=== PATIENT | female | born 1960 | race Caucasian/White ===

== ENCOUNTER 2017-08-19 08:33 | Emergency (ER) | payer OTHER ==
[2017-08-19 08:33] VITALS: BMI 29.1
[2017-08-19 08:54] VITALS: TEMP 98.6
--- NOTE | 2017-08-19 09:11 | ED PDOC ---
Arrival/HPI - General Chief Complaint: Abdominal Pain Time Seen by Provider: 08/19/17 08:47 Historian: Patient - History of Present Illness Narrative History of Present Illness (Text): 08/19/17 08:57 A 56 year old female pmh enteritis, diabetes mellitus, hypertension, and depression, surgical history includes bladder sling, spinal disc repair, hernia dorsal spine repair, carpal tunnel repair, presents to the emergency department for constant lower abdominal "burning" discomfort, which began 3 days ago. She notes she has associated mild nausea. The patient reports she has not taken anything for the pain at home. She denies any fever, chest pain, vomiting, diarrhea, dysuria, vaginal discharge, vaginal bleeding, or any other complaints at this time. Time/Duration: < week (x 3 days) Symptom Onset: Gradual Symptom Course: Unchanged Quality: Burning (lower abdominal ) Activities at Onset: Light Context: Home Past Medical History - Provider Review Nursing Documentation Reviewed: Yes - Past History Past History: Non-Contributing - Infectious Disease Hx of Infectious Diseases: None - Tetanus Immunization Tetanus Immunization: Unknown - Reproductive Menopause: Yes - Cardiac Hx Cardiac Disorders: Yes Hx Hypertension: Yes - Pulmonary Hx Respiratory Disorders: No - Neurological Hx Neurological Disorder: No - HEENT Hx HEENT Disorder: No - Renal Hx Renal Disorder: No - Endocrine/Metabolic Hx Endocrine Disorders: Yes Hx Diabetes Mellitus Type 2: Yes Hx Hyperthyroidism: Yes - Hematological/Oncological Hx Blood Disorders: No - Integumentary Hx Dermatological Disorder: No - Musculoskeletal/Rheumatological Hx Musculoskeletal Disorders: No - Gastrointestinal Hx Gastrointestinal Disorders: No - Genitourinary/Gynecological Hx Genitourinary Disorders: No - Psychiatric Hx Psychophysiologic Disorder: Yes Hx Depression: Yes Hx Substance Use: No - Past Surgical History Past Surgical History: No Previous - Surgical History Hx Orthopedic Surgery: Yes (carpal tunnel, herniated disc) - Anesthesia Hx Anesthesia: Yes Hx Anesthesia Reactions: No Hx Malignant Hyperthermia: No - Suicidal Assessment Feels Threatened In Home Enviroment: No Family/Social History - Physician Review Nursing Documentation Reviewed: Yes Family/Social History: Unknown Family HX Smoking Status: Never Smoked Hx Alcohol Use: No Hx Substance Use: No Hx Substance Use Treatment: No Allergies/Home Meds Allergies/Adverse Reactions: Allergies No Known Allergies Allergy (Verified 08/19/17 08:54) Home Medications: Home Meds Medication Instructions Recorded Confirmed ARIPiprazole [Abilify] 2 mg PO DAILY 08/19/17 08/19/17 Escitalopram [Lexapro] 10 mg PO DAILY 08/19/17 08/19/17 GlipiZIDE [Glipizide] 10 mg PO BID 08/19/17 08/19/17 Lisinopril [Zestril] 40 mg PO DAILY 08/19/17 08/19/17 MetFORMIN [glucOPHAGE] 1,000 mg PO BID 08/19/17 08/19/17 amLODIPine [Norvasc] 5 mg PO DAILY 08/19/17 08/19/17 Review of Systems - Physician Review All systems were reviewed & negative as marked: Yes - Review of Systems Constitutional: absent: Fevers Respiratory: absent: SOB, Cough Cardiovascular: absent: Chest Pain Gastrointestinal: Nausea (mild), Other (lower abdominal burning ). absent: Abdominal Pain, Diarrhea, Vomiting Genitourinary Female: absent: Dysuria, Frequency, Hematuria, Vaginal Bleeding, Vaginal Discharge Physical Exam Vital Signs Reviewed: Yes Vital Signs Temp Pulse Resp BP Pulse Ox 08/19/17 12:00 87 18 159/71 H 99 08/19/17 10:33 89 18 157/79 H 98 08/19/17 08:51 98.6 F 70 16 164/90 H 99 Temperature: Afebrile Blood Pressure: Hypertensive Pulse: Regular Respiratory Rate: Normal Appearance: Positive for: Well-Appearing, Non-Toxic, Comfortable Pain Distress: None Mental Status: Positive for: Alert and Oriented X 3 Finger Stick Blood Glucose: 147 - Systems Exam Head: Present: Atraumatic, Normocephalic Pupils: Present: PERRL Mouth: Present: Moist Mucous Membranes Neck: Present: Normal Range of Motion Respiratory/Chest: Present: Clear to Auscultation, Good Air Exchange. No: Respiratory Distress, Accessory Muscle Use Cardiovascular: Present: Regular Rate and Rhythm, Normal S1, S2. No: Murmurs Abdomen: Present: Tenderness (non-focal lower abdominal tenderness), Normal Bowel Sounds. No: Distention, Peritoneal Signs, McBurney's Point Tender Neurological: Present: GCS=15, Speech Normal Skin: Present: Warm, Dry, Normal Color. No: Rashes Psychiatric: Present: Alert, Oriented x 3, Normal Insight, Normal Concentration Medical Decision Making ED Course and Treatment: The pt appears well, in no distress, benign abdominal exam. I disc w both pt and her results and plan for f/u for pain and also for incidental CT findings. Pt v/u and agrees w plan. Will f/u w pcp and regional education coordinator this week. Progress Notes: EKG: Ordered, reviewed, and independently interpreted the EKG. Rate : 73 BPM Rhythm : NSR Interpretation : No axis, normal intervals. No acute ischemia. PROCEDURE: CT Abdomen and Pelvis with contrast HISTORY: abdominal pain COMPARISON: None. TECHNIQUE: Contrast dose: 100 mL Omnipaque 350 Radiation dose: Total exam DLP = 511.44 mGy-cm. This CT exam was performed using one or more of the following dose reduction techniques: Automated exposure control, adjustment of the mA and/or kV according to patient size, and/or use of iterative reconstruction technique. FINDINGS: LOWER THORAX: Unremarkable. LIVER: Unremarkable. No gross lesion or ductal dilatation. GALLBLADDER AND BILE DUCTS: Unremarkable. PANCREAS: The pancreas is normal in size. There is a fluid density mass with direct communication demonstrated with the pancreatic duct. This mass measures approximately 1.2 x 0.6 cm. This most likely represents an IPMN. Followup with contrast-enhanced CT is advised. There is no other pancreatic mass identified. There is no pancreatic ductal dilatation. SPLEEN: Unremarkable. ADRENALS: Unremarkable. No mass. KIDNEYS AND URETERS: Unremarkable. No hydronephrosis. No solid mass. VASCULATURE: Unremarkable. No aortic aneurysm. BOWEL: Unremarkable. No obstruction. No gross mural thickening. APPENDIX: Normal appendix. PERITONEUM: Unremarkable. No free fluid. No free air. LYMPH NODES: Unremarkable. No enlarged lymph nodes. BLADDER: Unremarkable. REPRODUCTIVE: Postmenopausal uterus. Several coarse calcifications likely reflecting degenerating calcified fibroids. BONES: No acute fracture. OTHER FINDINGS: None. IMPRESSION: No acute abnormality. Fluid density 12 mm pancreatic mass with direct communication with the pancreatic duct most likely represents an IPMN. Followup with contrast-enhanced CT is advised. - Lab Interpretations Microbiology Results: Microbiology Results 08/19/17 09:30 Urine Urine Culture - Final No Growth (<1,000 CFU/ML) Lab Results: 08/19/17 08:55 08/19/17 08:55 Lab Results 08/19/17 09:30: Urine Color Yellow, Urine Appearance Clear, Urine pH 7.0, Ur Specific [place] 1.015, Urine Protein Trace H, Urine Glucose (UA) Negative, Urine Ketones Negative, Urine Blood Trace-intact H, Urine Nitrate Negative, Urine Bilirubin Negative, Urine Urobilinogen 0.2, Ur Leukocyte Esterase Negative , Urine RBC 0 - 2, Urine WBC 0 - 2, Ur Epithelial Cells 3 - 4, Urine Bacteria Few 08/19/17 08:55: Sodium 142, Potassium 4.2, Chloride 103, Carbon Dioxide 27, Anion Gap 16, BUN 12, Creatinine 0.6, Est GFR ( Amer) > 60, Est GFR (Non- Af Amer) > 60, Random Glucose 130 H, Calcium 9.9, Total Bilirubin 1.1, AST 26, ALT 39, Alkaline Phosphatase 133 H, Total Protein 8.0, Albumin 4.7, Globulin 3.3 , Albumin/Globulin Ratio 1.4, Lipase 81 08/19/17 08:55: WBC 7.3, RBC 4.53, Hgb 13.4, Hct 39.9, MCV 88.1, MCH 29.6, MCHC 33.6, RDW 13.1, Plt Count 222, MPV 9.0, Gran % 49.0 L, Lymph % (Auto) 43.4 H, [place] % (Auto) 5.7, Eos % (Auto) 1.8, Baso % (Auto) 0.1, Gran # 3.59, Lymph # 3.2 , [place] # 0.4, Eos # 0.1, Baso # 0.01 - RAD Interpretation Radiology Orders: 08/19/17 10:00 ABD & PELVIS IV CONTRAST ONLY [CT] Stat - Medication Orders Current Medication Orders: Discontinued Medications Ketorolac Tromethamine (Toradol) 10 mg IVP STAT STA Stop: 08/19/17 12:12 Last Admin: 08/19/17 12:25 Dose: 10 mg MAR Pain Assessment Document 08/19/17 12:25 [facility] (Rec: 08/19/17 12:26 [id number] Pain Reassessment Is this a pain reassessment? No Sleep Is patient sleeping during reassessment? No Presence of Pain Presence of Pain Yes Pain Scale Used Pain Scale Used Numeric IVP Administration Document 08/19/17 12:25 [facility] (Rec: 08/19/17 12:26 [id number]) Charges for Administration # of IVP Administrations 1 - Scribe Statement The provider has reviewed the documentation as recorded by the Scribe Kelly Tolentino Provider Scribe Attestation: All medical record entries made by the Scribe were at my direction and personally dictated by me. I have reviewed the chart and agree that the record accurately reflects my personal performance of the history, physical exam, medical decision making, and the department course for this patient. I have also personally directed, reviewed, and agree with the discharge instructions and disposition. Disposition/Present on Arrival - Present on Arrival Any Indicators Present on Arrival: No History of DVT/PE: No History of Uncontrolled Diabetes: No Urinary Catheter: No History of Decub. Ulcer: No History Surgical Site Infection Following: None - Disposition Have Diagnosis and Disposition been Completed?: Yes Diagnosis: Lower abdominal pain Disposition: HOME/ ROUTINE Disposition Time: 13:08 Condition: STABLE Discharge Instructions (ExitCare): Acute Abdominal Pain (ED) Print Language: SYRIAN Additional Instructions: Please follow up with your primary doctor and also with your juvenile court judge this week. Please take the naproxen for pain first and only take the tylenol with codeine if this is not helping. Return to the ER for any worsening symptoms or for any other concerns. Prescriptions: Acetaminophen with Codeine [Tylenol with Codeine #3 Tablet] 1 each PO Q4H PRN # 6 tablet PRN Reason: Pain, Moderate (4-7) Naproxen [Naprosyn] 500 mg PO Q12H PRN #10 tablet PRN Reason: Pain, Moderate (4-7) Ondansetron ODT [Zofran ODT] 4 mg PO Q4H PRN #10 odt PRN Reason: Nausea/Vomiting Referrals: Sher Boogie MD [Primary Care Provider] - Follow up with primary Forms: [facility] [facility] (I[place]ic)
[2017-08-19 09:22] LABS: BASO # 0.01 K/mm3 (0.0-2.0); BASO % 0.1 % (0.0-3.0); EOS # 0.1 (0.0-0.7); EOS % 1.8 % (1.5-5.0); GRAN # 3.59 (1.4-6.5); HEMATOCRIT 39.9 % (36.0-48.0); LYMPH # 3.2 (1.2-3.4); LYMPH % 43.4 % (22.0-35.0); MEAN CELL VOLUME 88.1 fl (80.0-105.0); MEAN CORPUSCULAR HEMOGLOBIN 29.6 pg (25.0-35.0); MEAN CORPUSCULAR HGB CONC 33.6 g/dl (31.0-37.0); MONO # 0.4 (0.1-0.6); MONO % 5.7 % (1.0-6.0); RED CELL DISTRIBUTION WIDTH 13.1 % (11.5-14.5); WHITE BLOOD COUNT 7.3 10^3/ul (4.5-11.0)
[2017-08-19 09:35] LABS: ALB/GLOB RATIO 1.4 (1.1-1.8); ALKALINE PHOSPHATASE 133 U/L (38-126); ALT/SGPT 39 U/L (7-56); AST/SGOT 26 U/L (14-36); BILIRUBIN,TOTAL 1.1 mg/dL (0.2-1.3); BLOOD UREA NITROGEN 12 mg/dL (7-21); CALCIUM 9.9 mg/dL (8.4-10.5); CARBON DIOXIDE 27 mmol/L (21-33); CHLORIDE 103 mmol/L (98-107); GFR AFRICAN-AMERICAN > 60; GLUCOSE,RANDOM 130 mg/dL (70-110); LIPASE 81 U/L (23-300); POTASSIUM 4.2 mmol/L (3.6-5.0); SODIUM 142 mmol/L (132-148)
[2017-08-19 09:54] LABS: URINE BILIRUBIN NEGATIVE (NEGATIVE); URINE BLOOD TRACE-INTACT (NEGATIVE); URINE GLUCOSE (UA) NEGATIVE (NEGATIVE); URINE KETONE NEGATIVE (NEGATIVE); URINE LEUKOCYTE ESTERASE NEGATIVE Leu/uL (NEGATIVE); URINE PROTEIN TRACE mg/dL (<30 mg/dL); URINE UROBILINOGEN 0.2 E.U./dL (<1 E.U./dL)
[2017-08-19 09:55] LABS: URINE APPEARANCE CLEAR (CLEAR); URINE COLOR YELLOW (YELLOW)
[2017-08-19 10:10] LABS: URINE BACTERIA FEW (NEG); URINE RBC 0 - 2 /hpf (0-2); URINE WBC 0 - 2 /hpf (0-6)
[2017-08-19] MEDS ORDERED: Iohexol 350 MG/100 ML VIAL ONE (10:16)
--- NOTE | 2017-08-19 11:58 | CT ---
PROCEDURE: CT Abdomen and Pelvis with contrast HISTORY: abdominal pain COMPARISON: None. TECHNIQUE: Contrast dose: 100 mL Omnipaque 350 Radiation dose: Total exam DLP = 511.44 mGy-cm. This CT exam was performed using one or more of the following dose reduction techniques: Automated exposure control, adjustment of the mA and/or kV according to patient size, and/or use of iterative reconstruction technique. FINDINGS: LOWER THORAX: Unremarkable. LIVER: Unremarkable. No gross lesion or ductal dilatation. GALLBLADDER AND BILE DUCTS: Unremarkable. PANCREAS: The pancreas is normal in size. There is a fluid density mass with direct communication demonstrated with the pancreatic duct. This mass measures approximately 1.2 x 0.6 cm. This most likely represents an IPMN. Followup with contrast-enhanced CT is advised. There is no other pancreatic mass identified. There is no pancreatic ductal dilatation. SPLEEN: Unremarkable. ADRENALS: Unremarkable. No mass. KIDNEYS AND URETERS: Unremarkable. No hydronephrosis. No solid mass. VASCULATURE: Unremarkable. No aortic aneurysm. BOWEL: Unremarkable. No obstruction. No gross mural thickening. APPENDIX: Normal appendix. PERITONEUM: Unremarkable. No free fluid. No free air. LYMPH NODES: Unremarkable. No enlarged lymph nodes. BLADDER: Unremarkable. REPRODUCTIVE: Postmenopausal uterus. Several coarse calcifications likely reflecting degenerating calcified fibroids. BONES: No acute fracture. OTHER FINDINGS: None. IMPRESSION: No acute abnormality. Fluid density 12 mm pancreatic mass with direct communication with the pancreatic duct most likely represents an IPMN. Followup with contrast-enhanced CT is advised.
[2017-08-19 13:07] VITALS: RESP 18
[2017-08-19 13:08] VITALS: BP 159/71; PULSE 87; O2SAT 99
--- NOTE | 2017-08-20 07:41 | CARD ---
APPROVED REPORT EKG Measurement Heart [id number] <Conclusion> Normal sinus rhythm Normal ECG No change
== END 2017-08-19 13:08 | disposition home or self-care (01) ==
LOC: ED 08:33
DX: R10.30 Lower abdominal pain, unspecified (principal); I10 Essential (primary) hypertension; E11.9 Type 2 diabetes mellitus without complications
CPT/HCPCS: 74177; 80053; 81001; 83690; 85025; 87086; 93005; 96374; 99284; J1885; Q9967

== ENCOUNTER 2017-09-06 13:27 | Inpatient (IN) | payer MEDICARE, OTHER ==
[2017-09-06 13:28] VITALS: BMI 29.1
[2017-09-06] MEDS ORDERED: Sodium Chloride 0.9% 1,000 ML IV STA (14:47)
[2017-09-06] MEDS ORDERED: Morphine 4 mg/ml ISec IVP STA (14:47)
[2017-09-06] MEDS ORDERED: Iohexol 240 (50 ml) ONE (15:17)
--- NOTE | 2017-09-06 15:17 | ED PDOC ---
Arrival/HPI <Basia Alcantara - Last Filed: 09/06/17 22:33> - General Historian: Patient - History of Present Illness Time/Duration: Other (approx 20 days) <Radha Moon - Last Filed: 09/07/17 00:34> - General Chief Complaint: Abdominal Pain Time Seen by Provider: 09/06/17 14:37 - History of Present Illness Narrative History of Present Illness (Text): 09/06/17 15:13 57yr old female presents today with continued worsening diffuse abdominal pain, greatest in the RLQ. c/o subjective fevers and chills. no n/v/d/c. no cp or sob. c/o diffuse bodyaches. pt states she has been taking tylenol for pain without improvement. denies urinary symptoms. no dizziness or weakness. no other complaints. (Radha Moon) Past Medical History - Provider Review Nursing Documentation Reviewed: Yes - Travel History Have you recently traveled outside [place] w/in the past 3 mons?: No - Past History Past History: Non-Contributing - Infectious Disease Hx of Infectious Diseases: None - Tetanus Immunization Tetanus Immunization: Unknown - Cardiac Hx Cardiac Disorders: Yes Hx Hypertension: Yes - Pulmonary Hx Respiratory Disorders: No - Neurological Hx Neurological Disorder: No - HEENT Hx HEENT Disorder: No - Renal Hx Renal Disorder: No - Endocrine/Metabolic Hx Endocrine Disorders: Yes Hx Diabetes Mellitus Type 2: Yes Hx Hyperthyroidism: Yes - Hematological/Oncological Hx Blood Disorders: No - Integumentary Hx Dermatological Disorder: No - Musculoskeletal/Rheumatological Hx Musculoskeletal Disorders: No - Gastrointestinal Hx Gastrointestinal Disorders: No - Genitourinary/Gynecological Hx Genitourinary Disorders: No - Psychiatric Hx Psychophysiologic Disorder: Yes Hx Depression: Yes Hx Substance Use: No - Past Surgical History Past Surgical History: No Previous - Surgical History Hx Orthopedic Surgery: Yes (carpal tunnel, herniated disc) - Anesthesia Hx Anesthesia: Yes Hx Anesthesia Reactions: No Hx Malignant Hyperthermia: No - Suicidal Assessment Feels Threatened In Home Enviroment: No <Radha Moon - Last Filed: 09/07/17 00:34> Family/Social History - Physician Review Nursing Documentation Reviewed: Yes Family/Social History: Unknown Family HX Smoking Status: Never Smoked Hx Alcohol Use: No Hx Substance Use: No Hx Substance Use Treatment: No <Radha Moon - Last Filed: 09/07/17 00:34> Allergies/Home Meds <Basia Alcantara - Last Filed: 09/06/17 22:33> <Radha Moon - Last Filed: 09/07/17 00:34> Allergies/Adverse Reactions: Allergies No Known Allergies Allergy (Verified 09/06/17 14:47) Home Medications: Home Meds Medication Instructions Recorded Confirmed ARIPiprazole [Abilify] 2 mg PO DAILY 08/19/17 08/19/17 Escitalopram [Lexapro] 10 mg PO DAILY 08/19/17 08/19/17 GlipiZIDE [Glipizide] 10 mg PO BID 08/19/17 08/19/17 Lisinopril [Zestril] 40 mg PO DAILY 08/19/17 08/19/17 MetFORMIN [glucOPHAGE] 1,000 mg PO BID 08/19/17 08/19/17 amLODIPine [Norvasc] 5 mg PO DAILY 08/19/17 08/19/17 Review of Systems - Review of Systems Constitutional: Fevers. absent: Fatigue Respiratory: absent: SOB, Cough Cardiovascular: absent: Chest Pain, Palpitations Gastrointestinal: Abdominal Pain. absent: Constipation, Diarrhea, Nausea, Vomiting Genitourinary Female: absent: Dysuria, Frequency, Hematuria Musculoskeletal: Other (bodyaches). absent: Arthralgias, Back Pain, Neck Pain Skin: absent: Rash, Pruritis Neurological: absent: Headache, Dizziness Psychiatric: absent: Anxiety, Depression <Radha Moon - Last Filed: 09/07/17 00:34> Physical Exam Vital Signs Reviewed: Yes Temperature: Afebrile Blood Pressure: Hypertensive Pulse: Regular Respiratory Rate: Normal Appearance: Positive for: Well-Appearing, Non-Toxic, Uncomfortable Pain Distress: None Mental Status: Positive for: Alert and Oriented X 3 - Systems Exam Head: Present: Atraumatic Mouth: Present: Moist Mucous Membranes Neck: Present: Normal Range of Motion Respiratory/Chest: Present: Clear to Auscultation, Good Air Exchange. No: Respiratory Distress, Accessory Muscle Use Cardiovascular: Present: Regular Rate and Rhythm Abdomen: Present: Normal Bowel Sounds, Guarding (voluntary). No: Tenderness ( diffuse abdominal tenderness), Distention, Peritoneal Signs, Rebound Genitourinary/Pelvic Exam: Present: Normal External Genitalia Back: Present: Normal Inspection. No: CVA Tenderness, Midline Tenderness, Paraspinal Tenderness Upper Extremity: Present: Normal ROM Lower Extremity: Present: Normal ROM Neurological: Present: GCS=15, Speech Normal Skin: Present: Warm, Dry, Normal Color. No: Rashes Psychiatric: Present: Alert, Oriented x 3 <Radha Moon - Last Filed: 09/07/17 00:34> Vital Signs Temp Pulse Resp BP Pulse Ox 09/06/17 16:32 72 18 152/90 H 100 09/06/17 14:43 98.8 F 72 17 164/88 H 100 Medical Decision Making <Basia Alcantara - Last Filed: 09/06/17 22:33> <Radha Moon - Last Filed: 09/07/17 00:34> ED Course and Treatment: 09/06/17 15:16 57yr old female presents today with diffuse abdominal pain. had ct of pancreatic mass on 08/19. now with continued pain. has outpatient ct scheduled for next week. morphine given for pain NS iv bolus given cbc wnl cmp wnl lipase wnl UA;trace blood 09/06/17 16:23 pt reassessment; pt feeling better after medications; vitals stable. pt reassessment; pain is returning. pt with luq, rlq tenderness. CT abd/pelvis with PO and IV contrast:FINDINGS: Lower thorax: Heart size is normal. There is a small hiatal hernia. There is minimal atelectasis and scarring at the lung bases. ABDOMEN: Liver: There is fatty infiltration of the liver. Gallbladder and bile ducts: unremarkable Pancreas: Pancreas is mildly atrophic. There is a 7 x 6 millimeter low attenuation lesion at the junction of the pancreatic body and tail, unchanged compared to the prior study. Pancreas is otherwise unremarkable. Spleen: unremarkable Adrenals: unremarkable Kidneys and ureters: unremarkable Stomach and bowel: Stomach is empty. Rotation is normal. The proximal jejunal loops are mildly distended with air-fluid levels. There is no small bowel obstruction. There is oral contrast in the distal small bowel. Terminal ileum is unremarkable. Appendix is unremarkable. There is moderate stool in the colon. Appendix: See stomach and bowel PELVIS: Bladder: unremarkable Reproductive: Uterine contours are lobular. There are small calcified masses/ fibroids. Adnexa are unremarkable. ABDOMEN and PELVIS: Intraperitoneal space: There is no free air or free fluid. Bones/joints: There are degenerative changes in the osseus structures. Soft tissues: is a fat-containing umbilical hernia. Vasculature: There are atherosclerotic calcifications in the aorta. Lymph nodes: There is no pathologic adenopathy. IMPRESSION: Fatty liver, no acute solid visceral abnormality; low attenuation/ cystic pancreatic body lesion unchanged since the prior study; no bowel obstruction; no CT findings of appendicitis; fibroid uterus Additional findings as described above. case discussed with dr. schroeder accepts admission to med/surg all aspects of this case were discussed the attending of record. impression; intractable abdominal pain, pancreatic mass admit to med/surg (Radha Moon) - Lab Interpretations Lab Results: 09/06/17 14:40 09/06/17 14:40 Lab Results 09/06/17 18:45: Urine Color Yellow, Urine Appearance Clear, Urine pH 7.0, Ur Specific [place] 1.010, Urine Protein Negative, Urine Glucose (UA) Negative, Urine Ketones Negative, Urine Blood Trace-intact H, Urine Nitrate Negative, Urine Bilirubin Negative, Urine Urobilinogen 0.2, Ur Leukocyte Esterase Negative , Urine RBC 0 - 2, Urine WBC 0 - 2, Ur Epithelial Cells 0 - 2, Urine Bacteria Rare 09/06/17 14:40: WBC 7.4, RBC 4.41, Hgb 13.2, Hct 39.0, MCV 88.4, MCH 29.9, MCHC 33.8, RDW 12.9, Plt Count 224, MPV 9.0, Gran % 45.8 L, Lymph % (Auto) 46.2 H, [place] % (Auto) 6.1 H, Eos % (Auto) 1.8, Baso % (Auto) 0.1, Gran # 3.40, Lymph # 3.4, [place] # 0.5, Eos # 0.1, Baso # 0.01 09/06/17 14:40: Sodium 144, Potassium 4.3, Chloride 104, Carbon Dioxide 30, Anion Gap 14, BUN 14, Creatinine 0.6 L, Est GFR ( Amer) > 60, Est GFR ( Non-Af Amer) > 60, Random Glucose 106, Calcium 9.9, Total Bilirubin 0.9, AST 24 , ALT 38, Alkaline Phosphatase 125, Total Protein 7.9, Albumin 4.7, Globulin 3.2 , Albumin/Globulin Ratio 1.5, Lipase 34 - RAD Interpretation Radiology Orders: 09/06/17 14:47 CHEST PORTABLE [RAD] Stat 09/06/17 15:09 ABD PELVIS PO & IV CONTRAST [CT] Stat - Medication Orders Current Medication Orders: Discontinued Medications Sodium Chloride (Sodium Chloride 0.9%) 1,000 mls @ 999 mls/hr IV .Q1H1M STA Stop: 09/06/17 15:47 Last Admin: 09/06/17 15:52 Dose: 999 mls/hr eMAR Start Stop Document 09/06/17 15:52 MB (Rec: 09/06/17 15:53 [id number] Intravenous Solution Start Date 09/06/17 Start Time 15:53 Morphine Sulfate (Morphine) 4 mg IVP STAT STA Stop: 09/06/17 14:48 Last Admin: 09/06/17 15:53 Dose: 4 mg MAR Pain Assessment Document 09/06/17 15:53 MB (Rec: 09/06/17 15:54 [id number]) Pain Reassessment Is this a pain reassessment? No Sleep Is patient sleeping during reassessment? No Presence of Pain Presence of Pain Yes Pain Scale Used Pain Scale Used Numeric Location Left, Right or Bilateral Bilateral Upper or Lower Lower Pain Location Body Site Abdomen Description Description Constant Intensity of Pain at present 8 Acceptable Level of Pain 0 Pain Behavior Guarding Refusal to Eat Aggravating Factors Changing Position Alleviating Factors/Management Medication Techniques IVP Administration Document 09/06/17 15:53 MB (Rec: 09/06/17 15:54 [id number]) Charges for Administration # of IVP Administrations 1 Disposition/Present on Arrival - Disposition Have Diagnosis and Disposition been Completed?: Yes <Basia Alcantara - Last Filed: 09/06/17 22:33> - Present on Arrival Any Indicators Present on Arrival: No History of DVT/PE: No History of Uncontrolled Diabetes: No Urinary Catheter: No History of Decub. Ulcer: No History Surgical Site Infection Following: None - Disposition Have Diagnosis and Disposition been Completed?: Yes Disposition Time: 22:00 Patient Plan: Admission <Radha Moon - Last Filed: 09/07/17 00:34> - Disposition Diagnosis: Abdominal pain, Mass of pancreas Disposition: HOSPITALIZED Patient Problems: Current Active Problems Problem Status Onset Abdominal pain Acute Mass of pancreas Acute Condition: FAIR
--- NOTE | 2017-09-06 15:21 | RAD ---
HISTORY: abdominal pain COMPARISON: Portable chest 05/20/2015. FINDINGS: LUNGS: No active pulmonary disease. PLEURA: No significant pleural effusion identified, no pneumothorax apparent. CARDIOVASCULAR: Normal. OSSEOUS STRUCTURES: No significant abnormalities. VISUALIZED UPPER ABDOMEN: Normal. OTHER FINDINGS: None. IMPRESSION: No interval acute cardiopulmonary disease appreciated.
[2017-09-06 15:57] LABS: BASO # 0.01 K/mm3 (0.0-2.0); BASO % 0.1 % (0.0-3.0); EOS # 0.1 (0.0-0.7); EOS % 1.8 % (1.5-5.0); GRAN # 3.4 (1.4-6.5); GRAN % 45.8 % (50.0-68.0); LYMPH # 3.4 (1.2-3.4); LYMPH % 46.2 % (22.0-35.0); MEAN CELL VOLUME 88.4 fl (80.0-105.0); MEAN CORPUSCULAR HEMOGLOBIN 29.9 pg (25.0-35.0); MEAN CORPUSCULAR HGB CONC 33.8 g/dl (31.0-37.0); MONO # 0.5 (0.1-0.6); MONO % 6.1 % (1.0-6.0); RED CELL DISTRIBUTION WIDTH 12.9 % (11.5-14.5); WHITE BLOOD COUNT 7.4 10^3/ul (4.5-11.0)
[2017-09-06 16:07] LABS: ALB/GLOB RATIO 1.5 (1.1-1.8); ALKALINE PHOSPHATASE 125 U/L (38-126); ALT/SGPT 38 U/L (7-56); AST/SGOT 24 U/L (14-36); BILIRUBIN,TOTAL 0.9 mg/dL (0.2-1.3); BLOOD UREA NITROGEN 14 mg/dL (7-21); CALCIUM 9.9 mg/dL (8.4-10.5); CARBON DIOXIDE 30 mmol/L (21-33); CHLORIDE 104 mmol/L (98-107); GFR AFRICAN-AMERICAN > 60; GLUCOSE,RANDOM 106 mg/dL (70-110); LIPASE 34 U/L (23-300); POTASSIUM 4.3 mmol/L (3.6-5.0); SODIUM 144 mmol/L (132-148); TOTAL PROTEIN 7.9 g/dL (5.8-8.3)
[2017-09-06] MEDS ORDERED: Iohexol 350 MG/100 ML VIAL ONE (18:34)
[2017-09-06 19:10] LABS: URINE BILIRUBIN NEGATIVE (NEGATIVE); URINE BLOOD TRACE-INTACT (NEGATIVE); URINE GLUCOSE (UA) NEGATIVE (NEGATIVE); URINE KETONE NEGATIVE (NEGATIVE); URINE LEUKOCYTE ESTERASE NEGATIVE Leu/uL (NEGATIVE); URINE PROTEIN NEGATIVE mg/dL (<30 mg/dL); URINE UROBILINOGEN 0.2 E.U./dL (<1 E.U./dL)
[2017-09-06 19:31] LABS: URINE APPEARANCE CLEAR (CLEAR); URINE COLOR YELLOW (YELLOW)
[2017-09-06 19:32] LABS: URINE BACTERIA RARE (NEG); URINE EPITHELIAL CELLS 0 - 2 /hpf (0-5); URINE RBC 0 - 2 /hpf (0-2); URINE WBC 0 - 2 /hpf (0-6)
--- NOTE | 2017-09-06 20:39 | CARD ---
APPROVED REPORT EKG Measurement Heart [id number] [place] [id number] <Conclusion> Normal sinus rhythm Normal ECG
--- NOTE | 2017-09-06 20:44 | CT ---
EXAM: CT Abdomen and Pelvis With Intravenous Contrast EXAM DATE/TIME: 09/06/2017 3:09 PM CLINICAL HISTORY: 57 years old, female; Pain; Abdominal pain; Generalized; Prior surgery; Surgery date: 6+ months; Surgery type: Bladder surgery (lifted) TECHNIQUE: Axial computed tomography images of the abdomen and pelvis with intravenous contrast. All CT scans at this facility use one or more dose reduction techniques, viz.: automated exposure control; ma/kV adjustment per patient size (including targeted exams where dose is matched to indication; i.e. head); or iterative reconstruction technique. Coronal and sagittal reformatted images were created and reviewed. CONTRAST: 100 mL of OMNI 350 administered intravenously. COMPARISON: CT - ABD PELVIS IV CONTRAST ONLY 2017-08-19 10:37 FINDINGS: Lower thorax: Heart size is normal. There is a small hiatal hernia. There is minimal atelectasis and scarring at the lung bases. ABDOMEN: Liver: There is fatty infiltration of the liver. Gallbladder and bile ducts: unremarkable Pancreas: Pancreas is mildly atrophic. There is a 7 x 6 millimeter low attenuation lesion at the junction of the pancreatic body and tail, unchanged compared to the prior study. Pancreas is otherwise unremarkable. Spleen: unremarkable Adrenals: unremarkable Kidneys and ureters: unremarkable Stomach and bowel: Stomach is empty. Rotation is normal. The proximal jejunal loops are mildly distended with air-fluid levels. There is no small bowel obstruction. There is oral contrast in the distal small bowel. Terminal ileum is unremarkable. Appendix is unremarkable. There is moderate stool in the colon. Appendix: See stomach and bowel PELVIS: Bladder: unremarkable Reproductive: Uterine contours are lobular. There are small calcified masses/fibroids. Adnexa are unremarkable. ABDOMEN and PELVIS: Intraperitoneal space: There is no free air or free fluid. Bones/joints: There are degenerative changes in the osseus structures. Soft tissues: is a fat-containing umbilical hernia. Vasculature: There are atherosclerotic calcifications in the aorta. Lymph nodes: There is no pathologic adenopathy. IMPRESSION: Fatty liver, no acute solid visceral abnormality; low attenuation/cystic pancreatic body lesion unchanged since the prior study; no bowel obstruction; no CT findings of appendicitis; fibroid uterus Additional findings as described above.
[2017-09-07] MEDS ORDERED: Morphine 2 mg/ml ISec IVP ONE (02:33)
[2017-09-07] MEDS ORDERED: Morphine 4 mg/ml ISec IVP PRN (07:38)
[2017-09-07] MEDS ORDERED: ARIPIPRAZOLE 2 MG PO SCH (10:00)
--- NOTE | 2017-09-07 11:45 | CP.PCM.HP ---
<Grace Alejandra - Last Filed: 09/07/17 11:46> History of Present Illness - History of Present Illness History of Present Illness: PGY-2 h&p for Dr. Patterson 57 year old female with past medical history of HTN, diabetes type 2, hypothyriodism and depression presents with continued worsening diffuse abdominal pain, greatest in the RLQ. Patient speaks Yi, family at bedside translated. Patient states that the pain started 2 weeks ago. She describes the pain as burning and sarp loacted in her right lower quadrants. The pain is intermittent, no associated with food, activity of time of day. Patient states that the pain is worsening and lasting longer. She also reports subjective fevers, chills and body aches. She went to the ED earlier this month for similar symptoms. At that time she had CT abd which showed no acute abnormalities, fluid density pancreatic mass, and uterine fibroids. Patient was instructed to follow up with PCP. Patient states that her doctor sent her for test but the pain was to great and she could not wait. Patient was given prescription for pain medication but did not take it because she did not was to risk developing side effects. She denies n&v, diarrhea and constipation, chest pain or sob. Patient states she has been taking Tylenol for pain without improvement. denies urinary symptoms, dizziness or weakness. no other complaints. past medical history: HTN, diabetes type 2, hypothyriodism and depression PSH: bladder sling, spinal repair, hernia dorsal spine repair, carpal tunnel repair social history: denies smoking, alcohol use, illicit drug use family history: great grandmother ovarian ca allergy: nkda home meds: norvasc, metformin, lisinopril, glipizide, lexapro, abilify Present on Admission - Present on Admission Any Indicators Present on Admission: No Review of Systems - Constitutional Constitutional: absent: Fatigue, Fever, Headache - EENT Eyes: absent: Change in Vision Nose/Mouth/Throat: absent: Nasal Congestion, Sore Throat - Cardiovascular Cardiovascular: absent: Chest Pain, Dyspnea, Palpitations - Gastrointestinal Gastrointestinal: Abdominal Pain. absent: Constipation, Diarrhea, Nausea, Vomiting - Genitourinary Genitourinary: absent: Dysuria, Hematuria - Musculoskeletal Musculoskeletal: Myalgias. absent: Arthralgias, Numbness, Stiffness, Tingling - Integumentary Integumentary: absent: Pruritus, Rash, Skin Ulcer, Sores - Neurological Neurological: absent: Dizziness, Numbness, Focal Weakness, Headaches, Weakness - Hematologic/Lymphatic Hematologic: absent: Easy Bleeding, Easy Bruising Past Patient History - Infectious Disease Hx of Infectious Diseases: None - Tetanus Immunizations Tetanus Immunization: Unknown - Past Social History Smoking Status: Never Smoked - CARDIAC Hx Hypertension: Yes - PULMONARY Hx Respiratory Disorders: No - NEUROLOGICAL Hx Neurological Disorder: No - HEENT Hx HEENT Problems: No - RENAL Hx Chronic Kidney Disease: No - ENDOCRINE/METABOLIC Hx Diabetes Mellitus Type 2: Yes - HEMATOLOGICAL/ONCOLOGICAL Hx Blood Disorders: No - INTEGUMENTARY Hx Dermatological Problems: No - MUSCULOSKELETAL/RHEUMATOLOGICAL Hx Falls: No - GASTROINTESTINAL Hx Gastrointestinal Disorders: No - GENITOURINARY/GYNECOLOGICAL Hx Genitourinary Disorders: No - PSYCHIATRIC Hx Depression: Yes - SURGICAL HISTORY Hx Orthopedic Surgery: Yes (carpal tunnel, herniated disc) - ANESTHESIA Hx Anesthesia: Yes Hx Anesthesia Reactions: No Hx Malignant Hyperthermia: No Meds Allergies/Adverse Reactions: Allergies Allergy/AdvReac Type Severity Reaction Status Date / Time No Known Allergies Allergy Verified 09/06/17 14:47 Physical Exam - Constitutional Appears: No Acute Distress - Head Exam Head Exam: ATRAUMATIC, NORMAL INSPECTION, NORMOCEPHALIC - Eye Exam Eye Exam: EOMI, Normal appearance - ENT Exam ENT Exam: Mucous Membranes Moist - Respiratory Exam Respiratory Exam: Clear to Auscultation Bilateral, NORMAL BREATHING PATTERN. absent: Decreased Breath Sounds, Rhonchi, Wheezes, Respiratory Distress - Cardiovascular Exam Cardiovascular Exam: REGULAR RHYTHM, +S1, +S2. absent: Tachycardia, Systolic Murmur - GI/Abdominal Exam GI & Abdominal Exam: Normal Bowel Sounds, Soft, Tenderness (lower quadrants). absent: Distended, Firm - Extremities Exam Extremities exam: Positive for: normal inspection. Negative for: pedal edema, tenderness - Back Exam Back exam: NORMAL INSPECTION - Neurological Exam Neurological exam: Alert, Oriented x3 - Skin Skin Exam: Dry, Intact, Normal Color, Warm Results - Vital Signs Recent Vital Signs: Last Vital Signs Temp 98.1 F 09/07/17 07:54 Pulse 62 09/07/17 07:54 Resp 16 09/07/17 07:54 BP 151/79 H 09/07/17 07:54 Pulse Ox 96 09/07/17 07:54 - Labs Result Diagrams: 09/06/17 14:40 09/06/17 14:40 Labs: Laboratory Results - last 24 hr 09/07/17 07:46 POC Glucose (mg/dL) 118 H Assessment & Plan - Assessment and Plan (Free Text) Assessment: 57 year old female with past medical histpry of HTN, diabetes type 2, hypothyriodism and depression presents with continued worsening diffuse abdominal pain, greatest in the RLQ. Plan: 1. abd pain - CT abd showed Fatty liver, no acute solid visceral abnormality; low attenuation/cystic pancreatic body lesion unchanged since the prior study; no bowel obstruction; no CT findings of appendicitis; fibroid uterus (see full reports) - pelvic US - spine xray - morphine for pain - GI consulted - heme/onc consulted for pancreatic mass 2. HTN - controlled - continue home lisinopril 3. Diabetes type 1 - controlled - cont glipizide - ISS - fingersticks achs 4. depression - continue home ablifiy and lexapro <Mario Patterson S - Last Filed: 09/07/17 19:52> Results - Vital Signs Recent Vital Signs: Last Vital Signs Temp 98.1 F 09/07/17 07:54 Pulse 62 09/07/17 07:54 Resp 16 09/07/17 07:54 BP 151/79 H 09/07/17 07:54 Pulse Ox 96 09/07/17 07:54 - Labs Result Diagrams: 09/06/17 14:40 09/06/17 14:40 Labs: Laboratory Results - last 24 hr 09/07/17 09/07/17 09/07/17 07:46 12:05 16:23 POC Glucose (mg/dL) 118 H 93 88 Assessment & Plan - Assessment and Plan (Free Text) Plan: Pt is seen and examined. Note of medical records field technician reviewed and I am in agree with it. Reviewed Labs and medications. Reviewed notes. Spoke to Dr Kay regarding Pancreatic cyst. Reviewed Ct report. Pt has DM-2. Pain is controlled.
--- NOTE | 2017-09-07 12:31 | US ---
HISTORY: low abd pain COMPARISON: None available. TECHNIQUE: Transabdominal FINDINGS: UTERUS: Measures 7.8 x 2.9 x 5.0 cm. Partially calcified anterior fundal fibroid, 1.1 x 1.4 x 1.4 cm. There is nodular calcification in the posterior uterine body. Likely this reflects a degenerated calcified fibroid. ENDOMETRIUM: Measures to mm in diameter. Unremarkable. CERVIX: No cervical abnormality identified. RIGHT OVARY: Measures 1.2 x 1.9 x 2.3 cm. No solid mass. Normal flow. LEFT OVARY: Not visualize FREE FLUID: No significant free fluid noted. OTHER FINDINGS: None. IMPRESSION: Several small calcified fibroids. No additional abnormality. Left ovary not visualized.
--- NOTE | 2017-09-07 12:33 | RAD ---
PROCEDURE: Radiographs of the Lumbar Spine. HISTORY: pain COMPARISON: No prior. FINDINGS: BONES: Evaluation somewhat limited due to oral contrast from CT examination within colon, projecting over the spine. No fracture. Normal alignment maintained. DISC SPACES: Unremarkable. OTHER FINDINGS: None. IMPRESSION: Unremarkable radiographs of the lumbar spine.
--- NOTE | 2017-09-07 16:14 | CP.PCM.CON ---
<Karol Guzman - Last Filed: 09/07/17 16:11> History of Present Illness - History of Present Illness History of Present Illness: Seen and examined at the bedside earlier this morning, the chart was reviewed. Request for GI consult is for abnormal CT scan, pancreatic cysts. HPI: This is a 57 year old female with no pertinent past medical history came to the emergency room with worsening diffuse abdominal pain. The patient is [place] Citizen-speaking and her daughter is currently at the bedside. The patient complains of pain mostly to right lower quadrant and diffuse pain in the supine lower pelvis area. Reports that the pain has been ongoing for 2 weeks intermittently and has been worsening, describes it as a burning and heaviness sensation. She does complain of back pain, denies dysuria. The patient was in the emergency room on August 19, had a CT scan of abdomen and pelviswith IV contrast reporting 12 mm fluid density pancreatic mass with direct communication with pancreatic duct may likely represent IPM and. The patient returned to the hospital she had another CAT scan on this admission with IV and oral contrast and this reported low attenuation/cystic pancreatic body lesion unchanged since 2 prior study, no bowel obstruction or other acute finding. Patient also complains of abdominal bloating at any time, no reports of any vaginal discharge or bleeding. Patient denies ever having a colonoscopy, although she did have an upper endoscopy about 7 or 8 years ago and does not recall any ulcers or other acute findings. patient denies change in bowel habits , moving his bowels regularly last BM was yesterday. No melena or bright red blood per rectum. Past medical history: diabetes mellitus, hypertension Surgical history: Neck surgery, back surgery, vaginal prolapse surgery Social history: Denies smoking, EtOH or drugs Family history: Grandmother on maternal side with ovarian cancer Allergies: No known drug allergies Medications: Reviewed as per MAR ROS: Systems reviewed with positive findings see HPI. Past Patient History - Infectious Disease Hx of Infectious Diseases: None - Tetanus Immunizations Tetanus Immunization: Unknown - Past Social History Smoking Status: Never Smoked - CARDIAC Hx Hypertension: Yes - PULMONARY Hx Respiratory Disorders: No - NEUROLOGICAL Hx Neurological Disorder: No - HEENT Hx HEENT Problems: No - RENAL Hx Chronic Kidney Disease: No - ENDOCRINE/METABOLIC Hx Diabetes Mellitus Type 2: Yes - HEMATOLOGICAL/ONCOLOGICAL Hx Blood Disorders: No - INTEGUMENTARY Hx Dermatological Problems: No - MUSCULOSKELETAL/RHEUMATOLOGICAL Hx Falls: No - GASTROINTESTINAL Hx Gastrointestinal Disorders: No - GENITOURINARY/GYNECOLOGICAL Hx Genitourinary Disorders: No - PSYCHIATRIC Hx Depression: Yes - SURGICAL HISTORY Hx Orthopedic Surgery: Yes (carpal tunnel, herniated disc) - ANESTHESIA Hx Anesthesia: Yes Hx Anesthesia Reactions: No Hx Malignant Hyperthermia: No Meds Allergies/Adverse Reactions: Allergies Allergy/AdvReac Type Severity Reaction Status Date / Time No Known Allergies Allergy Verified 09/06/17 14:47 - Medications Medications: Current Medications Amlodipine Besylate (Norvasc) 5 mg PO DAILY [facility] Last Admin: 09/07/17 09:45 Dose: 5 mg Escitalopram Oxalate (Lexapro) 10 mg PO DAILY [facility] Last Admin: 09/07/17 09:45 Dose: 10 mg Glipizide (Glucotrol) 10 mg PO BID [facility] Last Admin: 09/07/17 09:45 Dose: 10 mg Insulin Human Regular (Humulin R Low) 0 units SC ACHS [facility] PRN Reason: Protocol Lisinopril (Zestril) 40 mg PO DAILY [facility] Last Admin: 09/07/17 09:45 Dose: 40 mg Morphine Sulfate (Morphine) 4 mg IVP Q4H PRN PRN Reason: Pain, severe (8-10) Aripiprazole [ Abilify] 2 Mg (Home Med) 2 mg PO DAILY [facility] Physical Exam - Constitutional Appears: No Acute Distress - Head Exam Head Exam: NORMOCEPHALIC - Eye Exam Eye Exam: Normal appearance. absent: Scleral icterus - ENT Exam ENT Exam: Mucous Membranes Moist (.) - Neck Exam Neck exam: Positive for: Normal Inspection - Respiratory Exam Respiratory Exam: Clear to Auscultation Bilateral, NORMAL BREATHING PATTERN. absent: Respiratory Distress - Cardiovascular Exam Cardiovascular Exam: +S1, +S2 - GI/Abdominal Exam GI & Abdominal Exam: Distended, Normal Bowel Sounds, Soft, Tenderness (right lower quaderant, difuse tenderness to lower abdomen/pelvis, and lower back tenderness). absent: Guarding, Organomegaly, Rebound - Extremities Exam Extremities exam: Negative for: pedal edema, pedal pulses present - Neurological Exam Neurological exam: Alert, CN II-XII Intact, Oriented x3 - Skin Skin Exam: Dry, Warm Results - Vital Signs Recent Vital Signs: Last Vital Signs Temp 98.1 F 09/07/17 07:54 Pulse 62 10/20/17 07:54 Resp 16 09/07/17 07:54 BP 151/79 H 09/07/17 07:54 Pulse Ox 96 09/07/17 07:54 - Labs Result Diagrams: 09/06/17 14:40 09/06/17 14:40 Labs: Laboratory Results - last 24 hr 09/07/17 07:46 POC Glucose (mg/dL) 118 H Assessment & Plan - Assessment and Plan (Free Text) Assessment: Assessment: Abdominal pain:right lower quadrant and diffuse to lower abdomen/pelvis Abnormal CT scan, report 7.6 mm pancreatic lesion in the body and tail, rule out pancreatic mass/I PMN History of diabetes mellitus Hypertension Rule out UTI history of vaginal prolapse Plan: Diet as tolerated Request her pelvic ultrasound urine culture patient with benefit from an MRI/MRCP with and without contrast, patient received IV contrast CT scan yesterday, we will consider this test for the morning, we'll repeat the BMP in the a.m. Patient may also benefit from EUS, will make further recommendation after review of MRI. oncology evaluation Thank you for this consult and for allowing us to participate in your patient's care. Seen and discussed with Dr. Kay <Carter Kay V - Last Filed: 09/09/17 23:07> Meds - Medications Medications: Current Medications Amlodipine Besylate (Norvasc) 5 mg PO DAILY [facility] Last Admin: 09/07/17 09:45 Dose: 5 mg Escitalopram Oxalate (Lexapro) 10 mg PO DAILY [facility] Last Admin: 09/07/17 09:45 Dose: 10 mg Glipizide (Glucotrol) 10 mg PO BID [facility] Last Admin: 09/07/17 09:45 Dose: 10 mg Insulin Human Regular (Humulin R Low) 0 units SC ACHS [facility] PRN Reason: Protocol Last Admin: 09/07/17 21:31 Dose: Not Given Lisinopril (Zestril) 40 mg PO DAILY [facility] Last Admin: 09/07/17 09:45 Dose: 40 mg Morphine Sulfate (Morphine) 4 mg IVP Q4H PRN PRN Reason: Pain, severe (8-10) Aripiprazole [ Abilify] 2 Mg (Home Med) 2 mg PO DAILY [facility] Results - Vital Signs Recent Vital Signs: Last Vital Signs Temp 98.1 F 09/07/17 07:54 Pulse 62 09/07/17 07:54 Resp 16 09/07/17 07:54 BP 151/79 H 09/07/17 07:54 Pulse Ox 96 09/07/17 07:54 - Labs Result Diagrams: 09/08/17 06:00 09/08/17 06:00 Labs: Laboratory Results - last 24 hr 09/07/17 09/07/17 09/07/17 07:46 12:05 16:23 POC Glucose (mg/dL) 118 H 93 88 Attending/Attestation - Attestation I have personally seen and examined this patient.: Yes I have fully participated in the care of the patient.: Yes I have reviewed all pertinent clinical information: Yes Notes (Text): This is an addendum to GI progress report dictated by Karol Guzman APN.The patient was seen and examined earlier. Medical records, lab studies, imagings were reviewed. Last 24 hours events reviewed. Agreed with the above treatment plan as outlined in Karol Guzman APN's notes with the addition of the following Patient mainly complains of suprapubic and lower abdominal discomfort. On examination patient has a tenderness suprapubically in the midline area. On examination abdomen soft there is some mild tenderness in the suprapubic areaMRI of the pelvis done and also MRCP done. MRCP was done to evaluate his small pancreatic cyst. Follow-up of the MRCP I did discuss with the patient's family who were at bedside. 09/07/17 21:43
--- NOTE | 2017-09-07 17:51 | CP.PCM.CON ---
History of Present Illness - History of Present Illness History of Present Illness: Heme/Onc Consult Note for Dr. Santiago's service cc: abdominal pain HPI: Patient is a 57yo female with past medical history of hypertension, diabetes mellitus type 2, hypothyriodism and depression that presented to [facility] c/o abdominal pain. Per patient's daughter, she had been experiencing non-radiating suprapubic abdominal pain for the past 2 weeks. She described the pain as burning in nature, intermittent and a 6 out of 10 in severity. She denied any alleviating or exacerbating symptoms and reported that prior to this she had been in her usual state of health with no acute issues. Patient's daughter also noted that her mother had lost approximately 4 pounds in the last month and has had a poor appetite as of late. Of note, on 08/19 patient was seen in the ED and had a CT abdomen/pelvis which revealed a fluid density 12mm pancreatic mass with direct communication with the pancreatic duct most likely representing an intraductal papillary mucinous neoplasm (IPMN). Presently, she denies chest pain, palpitations, SOB, nausea, vomiting, focal weakness, numbness, tingling, hematochezia, melena, hemoptysis, hematemesis. Heme/Onc consulted for evaluation of pancreatic mass. 12point ROS as per HPI above otherwise negative PMH: as stated above PSH: bladder suspension by Dr. Mike Mckeon, spinal repair, carpal tunnel repair, hernia dorsal spine repair Allergies: NKDA Family Hx: Ovarian cancer in her great grandmother Social Hx: Denied tobacco, alcohol and illicit drug use Medications: Reviewed and as per chart Past Patient History - Infectious Disease Hx of Infectious Diseases: None - Tetanus Immunizations Tetanus Immunization: Unknown - Past Social History Smoking Status: Never Smoked - CARDIAC Hx Hypertension: Yes - PULMONARY Hx Respiratory Disorders: No - NEUROLOGICAL Hx Neurological Disorder: No - HEENT Hx HEENT Problems: No - RENAL Hx Chronic Kidney Disease: No - ENDOCRINE/METABOLIC Hx Diabetes Mellitus Type 2: Yes - HEMATOLOGICAL/ONCOLOGICAL Hx Blood Disorders: No - INTEGUMENTARY Hx Dermatological Problems: No - MUSCULOSKELETAL/RHEUMATOLOGICAL Hx Falls: No - GASTROINTESTINAL Hx Gastrointestinal Disorders: No - GENITOURINARY/GYNECOLOGICAL Hx Genitourinary Disorders: No - PSYCHIATRIC Hx Depression: Yes - SURGICAL HISTORY Hx Orthopedic Surgery: Yes (carpal tunnel, herniated disc) - ANESTHESIA Hx Anesthesia: Yes Hx Anesthesia Reactions: No Hx Malignant Hyperthermia: No Meds Allergies/Adverse Reactions: Allergies Allergy/AdvReac Type Severity Reaction Status Date / Time No Known Allergies Allergy Verified 09/06/17 14:47 - Medications Medications: Current Medications Amlodipine Besylate (Norvasc) 5 mg PO DAILY [facility] Last Admin: 09/07/17 09:45 Dose: 5 mg Escitalopram Oxalate (Lexapro) 10 mg PO DAILY [facility] Last Admin: 09/07/17 09:45 Dose: 10 mg Glipizide (Glucotrol) 10 mg PO BID [facility] Last Admin: 09/07/17 09:45 Dose: 10 mg Insulin Human Regular (Humulin R Low) 0 units SC ACHS [facility] PRN Reason: Protocol Lisinopril (Zestril) 40 mg PO DAILY [facility] Last Admin: 09/07/17 09:45 Dose: 40 mg Morphine Sulfate (Morphine) 4 mg IVP Q4H PRN PRN Reason: Pain, severe (8-10) Aripiprazole [ Abilify] 2 Mg (Home Med) 2 mg PO DAILY [facility] Physical Exam - Constitutional Appears: No Acute Distress - Head Exam Head Exam: ATRAUMATIC, NORMAL INSPECTION, NORMOCEPHALIC - Eye Exam Eye Exam: EOMI Pupil Exam: PERRL - ENT Exam ENT Exam: Mucous Membranes Moist - Neck Exam Neck exam: Positive for: Normal Inspection. Negative for: Lymphadenopathy, Tenderness, Thyromegaly - Respiratory Exam Respiratory Exam: Clear to Auscultation Bilateral, NORMAL BREATHING PATTERN. absent: Rales, Rhonchi, Wheezes - Cardiovascular Exam Cardiovascular Exam: RRR, +S1, +S2. absent: Clicks, Gallop, JVD, Rubs, Systolic Murmur - GI/Abdominal Exam GI & Abdominal Exam: Soft, Tenderness (suprapubic). absent: Distended, Firm, Guarding, Rebound, Rigid - Extremities Exam Extremities exam: Positive for: normal inspection, pedal pulses present. Negative for: calf tenderness, pedal edema, tenderness - Back Exam Back exam: NORMAL INSPECTION - Neurological Exam Neurological exam: Alert, Oriented x3 - Psychiatric Exam Psychiatric exam: Normal Affect, Normal Mood - Skin Skin Exam: Dry, Intact, Normal Color, Warm Results - Vital Signs Recent Vital Signs: Last Vital Signs Temp 98.1 F 09/07/17 07:54 Pulse 62 09/07/17 07:54 Resp 16 09/07/17 07:54 BP 151/79 H 09/07/17 07:54 Pulse Ox 96 09/07/17 07:54 - Labs Result Diagrams: 09/06/17 14:40 09/06/17 14:40 Labs: Laboratory Results - last 24 hr 09/07/17 09/07/17 09/07/17 07:46 12:05 16:23 POC Glucose (mg/dL) 118 H 93 88 Assessment & Plan - Assessment and Plan (Free Text) Plan: 57yo female with history of hypertension, depression, diabetes mellitus type 2 presents c/o suprapubic abdominal pain for the past 2 weeks; oncology consulted for evaluation of pancreatic mass 1. Pancreatic mass 2. Abdominal pain 3. Hypertension 4. Diabetes mellitus type 2 5. Depression -Abdominal pain is suprapubic in nature and unlikely related to the pancreatic mass found on imaging given the location of her pain in relation to the mass; MRI of the pelvis has been ordered for further evaluation of the abdominal pain -Patient will require a pancreatic protocol CT or MRCP for evaluation of the pancreatic mass found on CT. An MRCP has been ordered. She may benefit from EUS with fine needle biopsy depending on the findings on MRCP -CT abdomen/pelvis from 08/19/2017 reviewed; revealed a fluid density 12mm pancreatic mass with direct communication with the pancreatic duct most likely representing an intraductal papillary mucinous neoplasm (IPMN) -CT abdomen/pelvis from 09/06/2017 reviewed; revealed fatty liver with no acute solid visceral abnormality; low attenuation/cystic pancreatic body lesion unchanged since the prior study -Pelvic ultrasound reviewed; revealed several small calcified fibroids Patient seen and case discussed with attending, Dr. Santiago - Date & Time Date: 09/07/17 Time: 17:59
[2017-09-07] MEDS ORDERED: Gadodiamide 287 MG/ML VIAL (20ML) IV ONE (18:29)
[2017-09-07] MEDS: Insulin Reg-LOW-Coverage SC SCH ×2 (21:28→21:31)
[2017-09-08 06:39] LABS: BASO # 0.01 K/mm3 (0.0-2.0); BASO % 0.1 % (0.0-3.0); EOS # 0.2 (0.0-0.7); EOS % 2.5 % (1.5-5.0); GRAN # 3.19 (1.4-6.5); GRAN % 41.4 % (50.0-68.0); HEMATOCRIT 40.2 % (36.0-48.0); LYMPH # 3.8 (1.2-3.4); LYMPH % 48.8 % (22.0-35.0); MEAN CELL VOLUME 88.2 fl (80.0-105.0); MEAN CORPUSCULAR HEMOGLOBIN 29.2 pg (25.0-35.0); MEAN CORPUSCULAR HGB CONC 33.1 g/dl (31.0-37.0); MONO # 0.6 (0.1-0.6); MONO % 7.2 % (1.0-6.0); RED CELL DISTRIBUTION WIDTH 13.2 % (11.5-14.5); WHITE BLOOD COUNT 7.7 10^3/ul (4.5-11.0)
[2017-09-08 06:44] LABS: ALB/GLOB RATIO 1.4 (1.1-1.8); ALKALINE PHOSPHATASE 121 U/L (38-126); ALT/SGPT 39 U/L (7-56); AST/SGOT 31 U/L (14-36); BILIRUBIN,TOTAL 1.5 mg/dL (0.2-1.3); BLOOD UREA NITROGEN 18 mg/dL (7-21); CALCIUM 9.7 mg/dL (8.4-10.5); CARBON DIOXIDE 28 mmol/L (21-33); CHLORIDE 103 mmol/L (98-107); GFR AFRICAN-AMERICAN > 60; GLUCOSE,RANDOM 124 mg/dL (70-110); POTASSIUM 4.1 mmol/L (3.6-5.0); SODIUM 142 mmol/L (132-148); TOTAL PROTEIN 7.8 g/dL (5.8-8.3)
[2017-09-08 07:36] VITALS: RESP 20
[2017-09-08] MEDS: Insulin Reg-LOW-Coverage SC SCH ×3 (08:07→16:57)
--- NOTE | 2017-09-08 15:39 | MRI ---
PROCEDURE: MRI pelvis without contrast HISTORY: suprapubic abdominal pain COMPARISON: None available. TECHNIQUE: Multiplanar, multi sequence MR images of the pelvis were obtained. No intravenous gadolinium contrast was administered. FINDINGS: UTERUS: Myometrium: Small hypo intense fibroids are seen in the uterine fundus measuring approximately 1.5 cm Endometrium: Unremarkable. Junctional zone: No abnormal thickening to indicate adenomyosis. No myometrial cysts. Cervix: Unremarkable. Vagina: Unremarkable. Fibroids: None. OVARIES/ ADNEXA: Right ovary: Unremarkable. Left ovary: Unremarkable. Fallopian tubes: Not visualized. No evidence of hydrosalpinx. BOWEL: Partially visualized rectosigmoid colon is grossly unremarkable. LYMPH NODES: No lymphadenopathy. BLADDER: Unremarkable. FREE FLUID: None. PELVIC BONES: Grossly unremarkable. OTHER FINDINGS: None. IMPRESSION: Unremarkable non-contrast enhanced MRI of the pelvis.
--- NOTE | 2017-09-08 15:48 | MRI ---
PROCEDURE: MRI Abdomen with and without contrast plus MRCP imaging HISTORY: Pancreatic mass evaluation COMPARISON: None available. TECHNIQUE: Multisequence, multiplanar MR images of the abdomen with and without gadolinium contrast enhancement. 20 cc of Omniscan were injected FINDINGS: LIVER: Unremarkable. GALLBLADDER: Unremarkable. SPLEEN: Unremarkable. PANCREAS: A small 5.8 mm cyst is seen at the junction of the pancreatic head and body. There is no abnormal enhancement. There is no enlargement of the pancreatic duct. ACR white paper guidelines suggest a single follow-up abdominal MRI in 1 year. This does not need to be performed with IV contrast. ADRENALS: Unremarkable. KIDNEYS: Unremarkable. AORTA: No aneurysm. ASCITES: None. PERITONEUM: Unremarkable. LYMPH NODES: Unremarkable. OTHER FINDINGS: No evidence of abnormal enhancement IMPRESSION: A small 5.8 mm cyst is seen at the junction of the pancreatic head and body. There is no abnormal enhancement. There is no enlargement of the pancreatic duct. ACR white paper guidelines suggest a single follow-up abdominal MRI in 1 year. This does not need to be performed with IV contrast.
[2017-09-08 16:25] VITALS: BP 119/76; PULSE 66; TEMP 98.7; O2SAT 95
--- NOTE | 2017-09-08 22:16 | CP.PCM.PN ---
Subjective - Date & Time of Evaluation Date of Evaluation: 09/08/17 Time of Evaluation: 15:00 - Subjective Subjective: this patient was seen and evaluated the area. Patient's daughter and also has been where at bedside. Patient feels better tolerating the diet. MRI scans are reviewed Objective - Vital Signs/Intake and Output Vital Signs (last 24 hours): Temp Pulse Resp BP Pulse Ox 98.7 F 66 20 119/76 95 09/08/17 16:24 09/08/17 16:24 09/08/17 16:24 09/08/17 16:24 09/08/17 16:24 Intake and Output: 09/08/17 09/09/17 18:59 06:59 Intake Total 860 Balance 860 - Labs Labs: 09/08/17 06:00 09/08/17 06:00 - Constitutional Appears: Well, No Acute Distress - Head Exam Head Exam: NORMAL INSPECTION. absent: ATRAUMATIC, NORMOCEPHALIC - Eye Exam Eye Exam: EOMI, PERRL - ENT Exam ENT Exam: Mucous Membranes Moist, Normal Exam - Neck Exam Neck Exam: Full ROM, Normal Inspection - Respiratory Exam Respiratory Exam: Clear to Ausculation Bilateral, NORMAL BREATHING PATTERN - Cardiovascular Exam Cardiovascular Exam: REGULAR RHYTHM, +S1, +S2. absent: JVD - GI/Abdominal Exam GI & Abdominal Exam: Soft, Organomegaly. absent: Tenderness Additional comments: mild tenderness in the suprapubic area. - Rectal Exam Rectal Exam: NORMAL INSPECTION - Extremities Exam Extremities Exam: Full ROM. absent: Calf Tenderness - Back Exam Additional comments: SLR restricted on the right side. Patient also has some tenderness over the lumbosacral area - Neurological Exam Neurological Exam: Alert, Awake, Oriented x3 - Skin Skin Exam: Intact, Normal Color Assessment and Plan - Assessment and Plan (Free Text) Assessment: 1. Suprapubic pain or abdominal pain etiology unclear. MRI scans reviewed. 2. Small pancreatic cystic lesion Plan 1. EUS evaluation 2. [employer] evaluation 3. Patient will need elective colonoscopy Discussed with the patient's family and patient at length who fully understood the importance of gi FOLLOW-UP RECOMMENDATIONS discussed with Dr Caldera
--- NOTE | 2017-09-09 06:05 | PN ---
DATE: 09/08/2017 SUBJECTIVE: The patient has no complaints of any chest pain. No shortness of breath. No headache or dizziness. She was initially admitted because of abdominal pain. She has been having suprapubic pain. She had a pelvic MRI that was done as well as pelvic ultrasound. She was unremarkable with the MRI. The ultrasound showed several small calcified fibroid. She was seen by GI. She was advised to follow up with [facility] [employer]. We spoke to the patient's family at the bedside update on the patient's diagnosis and plan of care. PHYSICAL EXAMINATION: VITAL SIGNS: Temperature 98.6, pulse of 61, blood pressure is 114/74, respirations 20, and O2 saturation 96%. GENERAL: The patient is lying in bed, flat, comfortable. HEENT: No oral lesion. Anicteric sclerae. Moist mucosa. NECK: No JVD, adenopathy, or thyromegaly. CARDIOVASCULAR: S1 and S2, regular. No murmurs, rubs, or gallops. LUNGS: Clear to auscultation bilaterally. No wheeze, rales, or rhonchi. ABDOMEN: Bowel sounds are positive, soft, nontender and nondistended. EXTREMITIES: No cyanosis, clubbing or edema. ASSESSMENT: 1. Abdominal pain, resolved. 2. Diabetes type 2. 3. Hypertension. 4. Depression. PLAN: The patient is currently comfortable. She is going to continue her Lexapro for her depression. She is on morphine for pain as needed. She is on Norvasc for hypertension. She is on lisinopril. The patient is on carbohydrate consistent diet. Condition is stable. Activities increase as tolerated. Mario Patterson MD
== END 2017-09-08 18:12 | disposition home or self-care (01) | DRG 440 ==
LOC: ED 13:27 → ERH 22:34 → 5RSO 09-07 01:29
PROVIDERS: ADMIT Internal Medicine Nephrology; ATTEND Internal Medicine Nephrology
DX: K86.2 Cyst of pancreas (principal); K76.0 Fatty (change of) liver, not elsewhere classified; I10 Essential (primary) hypertension; E11.9 Type 2 diabetes mellitus without complications; Z80.41 Family history of malignant neoplasm of ovary; Z79.899 Other long term (current) drug therapy; F32.89 Other specified depressive episodes; D28.2 Benign neoplasm of uterine tubes and ligaments

== ENCOUNTER 2018-12-27 08:10 | Outpatient (CLI) | payer MEDICARE | END 2018-12-27 08:11 | disposition home or self-care (01) | LOC: RAD 08:10 ==